=== PATIENT | male | born 1945 | race Caucasian/White ===

== ENCOUNTER → 2019-01-14 08:45 | Outpatient (CLI) | payer OTHER, SELFPAY ==
--- NOTE | 2019-01-14 08:50 | VDLE_ITS ---
Reason For Study: Hx of blood clots RIGHT LEFT CFV is compressible, spontaneous, phasic, CFV is compressible, spontaneous, phasic, competent and demonstrates normal competent, and demonstrates normal augmentation. augmentation. FV is compressible, spontaneous, phasic, FV is compressible, spontaneous, phasic, competent and demonstrates normal competent and demonstrates normal augmentation. augmentation. POP V is compressible, spontaneous, phasic, POP V is compressible, spontaneous, phasic, competent and demonstrates normal competent and demonstrates normal augmentation. augmentation. T/P Trunk is compressible. T/P Trunk is compressible. PTV is compressible. PTV is compressible. RT PerV is compressible. LT PerV is compressible. SFJ is competent. SFJ is competent. GSV is INCOMPETENT throughout for greater GSV above knee is competent. than 0.5 seconds and measures 0.22 x 0.31cm. GSV below knee is INCOMPETENT for greater SSV is INCOMPETENt for greater than 0.5 than 0.5 seconds and measures 0.36 x 0.43 cm. seconds and measures 0.17 x 0.21 cm. ASV below knee is INCOMEPTENT for greater INCOMPETENT concrete foreman 13 cm above medial than 0.5 seconds and measures 0.29 x 0.38 cm. mallelous. SSV is competent. Procedure INCOMPETENT concrete foreman 13 cm above medial Exam performed in department. mallelous. Interpretation Summary 1. No DVt bilaterally 2. Righ gsv 3.1 mm and lsv 2.1 mm and both reflux throughout. 3. Left gsv 4.3 and asv 3.8 below knee reflux. 4. Bilateral incompetent calf concrete foreman reflux. Ordering Physician: Gerry Coppola Referring Physician: Elsi Mark Performed By: Fernanda Mendoza RVT
--- NOTE | 2019-01-14 08:50 | AAVD_ITS ---
Reason For Study: IVC Filter present Aorta Measurements Aorta Doppler Measurements Proximal aorta measures1.88 x 1.98cm. in cross- Peak systolic flow velocities within the proximal sectional axis. aorta measure 65.3 cm/sec. Proximal aorta measures1.83cm. in longitudinal Peak systolic flow velocities within the mid aorta axis. measure 62.9 cm/sec. Mid aorta measures2.02 x 1.95cm. in cross- Peak systolic flow velocities within the distal sectional axis. aorta measure 46.9 cm/sec. Mid aorta measures2.05cm. in longitudinal axis. Distal aorta measures1.91 x 2.04cm. in cross- sectional axis. Distal aorta measures1.84cm. in longitudinal axis. IVC appears patent with normal color flow and doppler signals. Left Iliac Artery Left iliac artery measures 1.06 x 1.04 cm. in the cross-sectional axis. Left iliac artery measures 1.00 cm. in the longitudinal axis. Peak systolic velocity in the left iliac artery measures 77.1 cm/sec. Right Iliac Artery Right iliac artery measures 1.20 x 1.15 cm. in the cross-sectional axis. Right iliac artery measures 1.17 cm. in the longitudinal axis. Peak systolic velocity in the right iliac artery measures 71.5 cm/sec. Procedure Aorta IVC Iliac vasculature or bypass grafts [id number]. Exam performed in department. Interpretation Summary 1. no aortoiliac stenosis or aneurysm. 2. IVC appears patent and good flow. Ordering Physician: Gerry Coppola Referring Physician: Elsi Mark Performed By: Fernanda Mendoza RVT
== END ==
PROVIDERS: Referring Provider Surgery Vascular Surgery; Visit Provider Surgery Vascular Surgery
DX: Z86.718 Personal history of other venous thrombosis and embolism (principal); Z95.828 Presence of other vascular implants and grafts
CPT/HCPCS: 93970; 93978